=== PATIENT | male | born 1940 | race Hispanic/Latino ===

== ENCOUNTER 2025-06-27 09:23 | Inpatient (IN) | payer OTHER ==
[2025-06-27 10:01] LABS: #Basophils 0.05 10x3/uL (0.0-0.2); #Eosinophils 0.36 10x3/uL (0.0-0.7); #Monocytes 0.42 10x3/uL (0.11-0.59); #Neutrophils 4.65 10x3/uL (1.40-6.50); %Basophils 0.8 % (0.0-1.0); %Eosinophils 5.5 % (0.0-10.0); %Lymphocytes 15.7 % (21.0-51.0); %Monocytes 6.5 % (0.0-10.0); %Neutrophils 71.3 % (42.0-75.0); Hematocrit 42.3 % (42.0-52.0); Hemoglobin 13.0 g/dL (14.0-18.0); Mean Corpuscular Hemoglobin 26.2 pg (27.0-31.0); Mean Corpuscular Volume 85.3 fL (78.0-98.0); Platelet Count 179 10x3/uL (130-400); Red Blood Cell (RBC) Count 4.96 mill/uL (4.70-6.10); White Blood Cell (WBC) Count 6.51 10x3/uL (4.8-10.8)
[2025-06-27 10:17] LABS: ALT (SGPT) 14 U/L (Less than 45); AST (SGOT) 23 U/L (11-34); Albumin 3.4 g/dL (3.1-4.5); Alkaline Phosphatase 113 U/L (40-110); Anion Gap 8 mmol/L (10-20); BUN (Urea Nitrogen) 20 mg/dL (8.4-25.7); Bilirubin, Total 1.0 mg/dL (0.3-1.2); Calc. Creatinine Clearance 0 mL/min (70-130); Calcium 8.6 mg/dL (7.8-10.44); Carbon Dioxide 30 mmol/L (23-31); Chloride 105 mmol/L (98-107); Globulin 3.1 g/dL (2.4-3.5); Glucose 248 mg/dL (83-110); Potassium 4.0 mmol/L (3.5-5.1); Sodium 139 mmol/L (136-145)
[2025-06-27] MEDS ORDERED: Iopamidol-370 76% 500 ML MDV (1 ML CHARGE) ONE (12:29)
[2025-06-27 12:51] LABS: Acetaminophen Less than 10 mcg/mL (Less than 10); Salicylate Less than 8.0 mg/dL (Less than 8.0)
[2025-06-27 13:00] LABS: INR-International Normal Ratio 1.0; PTT 25.9 sec (22.9-36.1); Prothrombin Time 12.9 sec (12.0-14.7)
[2025-06-27] MEDS ORDERED: Aspirin Chewable 81 MG TAB ONE (13:29)
[2025-06-27] MEDS ORDERED: Acetaminophen 325 MG TAB PO PRN (14:42)
[2025-06-27] MEDS ORDERED: Senokot S 8.6-50 MG TAB PO PRN (14:42)
[2025-06-27] MEDS ORDERED: Electrolyte Replacement Protocol 1 EACH FS SCH (14:45)
[2025-06-27] MEDS ORDERED: Magnesium 2 GM/50 ML(in water) 2 GM in Premix 1 BAG IVPB PRN (15:30)
[2025-06-27] MEDS ORDERED: Potassium Chloride 20 MEQ in Premix 1 BAG IVPB PRN (15:30)
[2025-06-27] MEDS ORDERED: PHOS-NAK 1 PKT PACK PO PRN (15:30)
[2025-06-27 16:13] VITALS: BMI 29.6
[2025-06-27] MEDS: Melatonin 3 MG TAB PO PRN (21:36)
[2025-06-28 04:28] LABS: #Basophils 0.07 10x3/uL (0.0-0.2); #Eosinophils 0.44 10x3/uL (0.0-0.7); #Monocytes 0.52 10x3/uL (0.11-0.59); #Neutrophils 4.86 10x3/uL (1.40-6.50); %Basophils 0.9 % (0.0-1.0); %Eosinophils 5.9 % (0.0-10.0); %Lymphocytes 21.1 % (21.0-51.0); %Monocytes 7.0 % (0.0-10.0); %Neutrophils 65.0 % (42.0-75.0); Hematocrit 42.8 % (42.0-52.0); Hemoglobin 13.0 g/dL (14.0-18.0); Mean Corpuscular Hemoglobin 26.0 pg (27.0-31.0); Mean Corpuscular Volume 85.6 fL (78.0-98.0); Platelet Count 189 10x3/uL (130-400); Red Blood Cell (RBC) Count 5.00 mill/uL (4.70-6.10); White Blood Cell (WBC) Count 7.48 10x3/uL (4.8-10.8)
[2025-06-28 04:57] LABS: Albumin 3.0 g/dL (3.1-4.5); Anion Gap 16 mmol/L (10-20); BUN (Urea Nitrogen) 18 mg/dL (8.4-25.7); BUN/Creatinine Ratio 17.65; Calc. Creatinine Clearance 70 mL/min (70-130); Calcium 8.5 mg/dL (7.8-10.44); Carbon Dioxide 28 mmol/L (23-31); Cardiac Risk 3.9 (Less than 4.5); Chloride 105 mmol/L (98-107); Cholesterol 118 mg/dl (< 200 Desired); Glucose 154 mg/dL (83-110); HDL Cholesterol 30 mg/dL (>60 Neg Risk); LDL Cholesterol, Calculated 61 mg/dL; Potassium 3.8 mmol/L (3.5-5.1); Sodium 145 mmol/L (136-145); Triglycerides 133 mg/dL (Less than 150)
[2025-06-28] MEDS: Enoxaparin 40 MG (0.4 mL) SYRINGE SC SCH (08:42)
[2025-06-28] MEDS: Aspirin 81 mg Enteric Coated Tablet PO SCH (08:44)
[2025-06-28] MEDS: Lisinopril 5 MG TAB PO SCH (08:45)
[2025-06-28] MEDS: Metoprolol Succinate XL 100 MG ER.TAB PO SCH (08:45)
[2025-06-28] MEDS: Levothyroxine 150 MCG TAB PO SCH (08:45)
[2025-06-28] MEDS: Multivit, Therapeutic 1 TAB PO SCH (08:46)
[2025-06-28] MEDS: Pantoprazole 40 MG DR.TAB PO SCH (08:46)
[2025-06-28] MEDS ORDERED: Non-Formulary Item 1 EACH (Metoprolol Succinate [Metoprolol Succinate] 200 MG Tab.Er.24h) PO SCH (09:00)
[2025-06-28] MEDS ORDERED: Non-Formulary Item 1 EACH (Multivitamin [Multivitamin] 1 EACH Tablet) PO SCH (09:00)
[2025-06-28] MEDS ORDERED: Non-Formulary Item 1 EACH (Omeprazole [Omeprazole] 20 MG Capsule.Dr) PO SCH (09:00)
[2025-06-29] MEDS: metFORMIN 500 MG TAB PO SCH (20:49)
[2025-06-30] MEDS: Gabapentin 100 MG CAP PO SCH (09:25)
[2025-06-30] MEDS: HumuLIN 70/30 100 Unit/ml 10 ml Vial SC SCH (09:37)
[2025-06-30] MEDS ORDERED: HumuLIN 70/30 100 Unit/ml 10 ml Vial SC SCH (17:17)
[2025-06-30] MEDS: Dexamethasone 4 MG TAB PO SCH (17:39)
[2025-07-01] MEDS: predniSONE 20 MG TAB PO SCH (08:32)
[2025-07-01] MEDS: HumuLIN 70/30 100 Unit/ml 10 ml Vial SC SCH (10:05)
[2025-07-01 16:08] VITALS: BP 124/71; TEMP 97.5
== END 2025-07-01 18:20 | DRG 552 ==
LOC: ERS 09:23 → EEVIPCON 09:23 → 2SE 14:19 → OBSVTOIN 06-28 10:48
PROVIDERS: ADMIT Student in an Organized Health Care Education/Training Program; ATTEND Internal Medicine
DX: M48.062 Spinal stenosis, lumbar region with neurogenic claudication (principal); I10 Essential (primary) hypertension; E78.5 Hyperlipidemia, unspecified; E11.9 Type 2 diabetes mellitus without complications; I16.0 Hypertensive urgency; I25.10 Atherosclerotic heart disease of native coronary artery without angina pectoris; E03.9 Hypothyroidism, unspecified; Z79.890 Hormone replacement therapy; M48.07 Spinal stenosis, lumbosacral region; Z79.82 Long term (current) use of aspirin; Z79.899 Other long term (current) drug therapy; Z79.84 Long term (current) use of oral hypoglycemic drugs
CPT/HCPCS: 36415; 36416; 70496; 70498; 70551; 71045; 72148; 72192; 80053; 80061; 80069; 80307; 83036; 84484; 85025; 85610; 85730; 93005; 93306; 93970; 96372; G0378; J1650; J1815; J7512; J8540; Q9967